=== PATIENT | female | born 1980 | race Hispanic/Latino ===

== ENCOUNTER 2021-08-19 06:44 | Day surgery (SDC) | payer OTHER ==
[2021-08-19] MEDS ORDERED: LIDOCAINE 1% W/EPI 1:100,000 MDV 50 ML VIAL ONE (07:01)
[2021-08-19] MEDS ORDERED: NA CHLORIDE 0.9% 1,000 ML ONE (07:01)
[2021-08-19] MEDS ORDERED: Ringers Lactate 1,000 ML IV ONE (07:02)
[2021-08-19] MEDS ORDERED: LIDOCAINE 1% MPF 5 ML VIAL ONE (07:05)
[2021-08-19] MEDS ORDERED: dexAMETHasone 10 MG/ML VIAL ONE (07:05)
[2021-08-19] MEDS ORDERED: FENTANYL CITR 100 MCG/2 ML ONE (07:05)
[2021-08-19] MEDS ORDERED: MIDAZOLAM HCL 2 MG/2 ML INJ ONE (07:05)
[2021-08-19] MEDS ORDERED: propofoL 200 MG/20 ML VIAL IV ONE (07:05)
[2021-08-19] MEDS ORDERED: ONDANSETRON 4 MG/2 ML VIAL ONE ×2 (07:06→08:50)
[2021-08-19] MEDS ORDERED: KETOROLAC 30 MG/ML INJ ONE (08:20)
[2021-08-19] MEDS ORDERED: MEPERIDINE HCL 25 MG/ML SYR IM PRN (08:27)
--- NOTE | 2021-08-19 08:30 | P.BOP ---
Preoperative diagnosis: menorrhagia, polyp Postoperative diagnosis: same Primary procedure: operative hysteroscopy d/c, polypectomy myosure lite Professor Of English: NONE,NONE Estimated blood loss: min Specimen: EMC polyp Findings: polyp ant wall and polypoid endometrium, cavity AV and undistorted Anesthesia: General Complications: None Transferred to: Recovery Room Condition: Good
[2021-08-19] MEDS ORDERED: MORPHINE 4 MG/ML SYR ONE (08:50)
[2021-08-19] MEDS ORDERED: PANTOPRAZOLE 40MG TABLET PO SCH (09:00)
--- NOTE | 2021-08-19 09:39 | OP ---
Date of Procedure: 08/19/2021 Surgeon: Kaila Cooper MD Conveyor Belt Installer: No minister assistant. Preoperative Diagnoses: Menorrhagia, endometrial polyp. Postoperative Diagnoses: Menorrhagia, endometrial polyp. Primary Procedures: Operative hysteroscopy, polypectomy, and D and C. Anesthesia: General with LMA. Specimens: Endometrial curettings and polyp. Complications: No complications. Drains: No drains. Estimated Blood Loss: Minimal. Condition: Stable. Indications: The patient is a 41-year-old with heavy bleeding. Transvaginal ultrasound showed thick ened endometrium. To rule out atypia and malignancy, a diagnostic hysteroscopy was performed in the office. There was evidence of an endometrial polyp, which needed complete resection, so she was cons ented for hysteroscopy, polypectomy, and D and C and brought into the hospital. Procedure In Detail: After informed consent was verified, she was taken back to OR, placed in supine fashion on the operating table, and general anesthesia was given. She was then placed in a dorsal l ithotomy position. Vulva and vagina were prepped and draped in a sterile fashion. The cervix was exposed with a speculum. Anterior lip grasped with 2 Allis clamps and then operative hysteroscope that was primed was introduced through the cervical canal. Under direct visualization, I traversed this through the cervical canal into the uterine canal and the polyp was seen on the left anterior wall and then the rest of the irregular polypoid endometrium was seen in the entire endomet rial cavity. The scope was pulled out after pictures were taken. Then, the MyoSure Lite cutting dev ice was introduced through the operating channel. Then, the scope was replaced into the uterine cavi ty and using the cutting device, the polyp was completely resected to its base and the polypoid endom etrium was sampled globally 360 degrees and adequate tissue was obtained. The scope and the cutting device were removed. Endometrial curette #3 was used to curette the endometrial lining and empty the cavity. These specim ens were handed off for permanent pathology. EBL was minimal. The patient was recovered from anesth esia and taken to PACU in stable condition. She has 1 week followup results appointment with our off ice. We will discuss about the pathology results and make a future plan. KEVIN/MARJAN Voice ID: [id number] Report ID: [id number]
[2021-08-19 10:37] VITALS: BP 124/70; TEMP 97.2; O2SAT 97
[2021-08-19] MEDS ORDERED: IBUPROFEN PO SCH (21:00)
[2021-08-19] MEDS ORDERED: DIPHENHYDRAMINE HCL PO SCH (21:00)
== END 2021-08-19 09:56 | disposition home or self-care (01) ==
LOC: OR 06:44
PROVIDERS: ATTEND Obstetrics & Gynecology
PROC: 0UDB7ZX Extraction of Endometrium, Via Natural or Artificial Opening, Diagnostic (ICD-10-PCS; 2021-08-19)
PROC: 0UJD8ZZ Inspection of Uterus and Cervix, Via Natural or Artificial Opening Endoscopic (ICD-10-PCS; 2021-08-19)
PROC: 0UB97ZX Excision of Uterus, Via Natural or Artificial Opening, Diagnostic (ICD-10-PCS; principal; 2021-08-19 07:30)
DX: N92.1 Excessive and frequent menstruation with irregular cycle (principal); N84.0 Polyp of corpus uteri; N94.5 Secondary dysmenorrhea; R03.0 Elevated blood-pressure reading, without diagnosis of hypertension; F17.210 Nicotine dependence, cigarettes, uncomplicated
CPT/HCPCS: 81025; 88305; 58558; J2704; J2250; J3010; J1100; J7120; J7030; J2405 ×2